=== PATIENT | female | born 1970 | race Caucasian/White ===

== ENCOUNTER 2017-02-13 23:19 | Inpatient (IN) | payer SELFPAY ==
[~2017-02-13] VITALS: Ht 170.2 cm; Wt 90.3 kg
[2017-02-13 23:21] VITALS: BP 126/70
[2017-02-14 00:07] VITALS: BP 119/74
[2017-02-14 00:09] LABS: ALBUMIN 3.8 gm/dl (3.1-4.5); ALKALINE PHOSPHATASE 88 U/L (45-117); BUN 17 mg/dl (7-24); CHLORIDE 108 mmol/L (98-107); CREATININE 0.76 mg/dL (0.55-1.02); LIPASE 106 U/L (73-393); POTASSIUM 4.1 mmol/L (3.5-5.1); SGOT/AST 23 IU/L (3-35); SGPT/ALT 37 U/L (12-78); SODIUM 141 mmol/L (136-145); TOTAL PROTEIN 7.5 gm/dL (6.4-8.2)
[2017-02-14 00:33] LABS: BASO % 0.2 % (0.0-1.0); EOS % 0.1 % (1.0-4.0); HEMATOCRIT 37.8 % (37.0-47.0); HEMOGLOBIN 13.3 g/dl (12.0-16.0); LYMPH # 1.1 10*3/uL (1.3-4.4); LYMPH % 8.8 % (27.0-41.0); MEAN CELL VOLUME 87.7 fl (81.0-99.0); MEAN CORPUSCULAR HGB 30.9 pg (27.0-31.0); MEAN CORPUSCULAR HGB CONC 35.2 g/dl (33.0-37.0); MEAN PLATELET VOLUME 12.1 fl (9.6-12.3); MONO # 0.3 10*3/uL (0.1-1.0); MONO % 2.7 % (3.0-9.0); NEUT # 11.1 10*3/uL (2.3-7.9); NEUT % 87.8 % (47.0-73.0); PLATELET COUNT AUTOMATED 201 10*3/uL (130-400); RED BLOOD COUNT 4.31 10*6/uL (4.10-5.10); RED CELL DISTRI WIDTH 12.6 % (0-14.5); WHITE BLOOD COUNT 12.6 10*3/uL (4.8-10.8)
--- NOTE | 2017-02-14 01:26 | NUR ---
PT HAS BEEN MEDICATED WITH MECLAZINE AND 2 ANTI NAUSEA MEDICATIONS. PT CONTINUES TO NOT BE ABLE TO TOLERATED EKG NOR CT SCAN. DR GUSTAFSON NOTIFIED AND PT TO BE ADMITTED MS AT THIS TIME AND ORDERS TO BE CANCELED
[2017-02-14 01:34] VITALS: BP 111/58
--- NOTE | 2017-02-14 01:34 | NUR ---
Time: 133 A 46 year old F admitted to 5E under services of ANTOINETTE SOLIS DO. Pt. arrived via stretcher from ER. Chief complaint: DIZZINESS. TOM HUNG
--- NOTE | 2017-02-14 02:43 | NUR ---
PT. EDUCATION PROVIDED FOR CT OF ABDOMEN AND PELVIS, PT. IS REFUSING TO HAVE THIS TEST DONE STATING " I AM NOT NAUSEATED IN THIS SITTING POSITION BUT WHEN I MOVE MY HEAD AND OPEN MY EYES IT COMES IN WAVES LIKE WINDSHEILF WIPERS." DR. MAE CONTACTED TO SEE IF CT COULD BE RETIMED FOR IN AM.
--- NOTE | 2017-02-14 02:46 | NUR ---
PT. IS ADAMENTLY REFUSING CT SCAN AT THIS TIME. MAX REED IN RADIOLOGY.
--- NOTE | 2017-02-14 03:24 | NUR ---
DR. MAE CONTACTED IN REGARDS MERROPENEM ORDER AND PT. ALLERGY TO PENICILLIN, DR. MAE INFORMED NURSE TO GO AHEAD AND GIVE MEDICATION.
[2017-02-14 06:35] LABS: BASO % 0.1 % (0.0-1.0); HEMATOCRIT 33.3 % (37.0-47.0); HEMOGLOBIN 11.5 g/dl (12.0-16.0); LYMPH # 0.8 10*3/uL (1.3-4.4); LYMPH % 9.6 % (27.0-41.0); MEAN CELL VOLUME 90.2 fl (81.0-99.0); MEAN CORPUSCULAR HGB 31.2 pg (27.0-31.0); MEAN CORPUSCULAR HGB CONC 34.5 g/dl (33.0-37.0); MEAN PLATELET VOLUME 12.3 fl (9.6-12.3); MONO # 0.2 10*3/uL (0.1-1.0); NEUT # 6.9 10*3/uL (2.3-7.9); NEUT % 86.8 % (47.0-73.0); PLATELET COUNT AUTOMATED 177 10*3/uL (130-400); RED BLOOD COUNT 3.69 10*6/uL (4.10-5.10)
[2017-02-14 06:51] LABS: ALBUMIN 3.1 gm/dl (3.1-4.5); ALKALINE PHOSPHATASE 70 U/L (45-117); BUN 14 mg/dl (7-24); CHLORIDE 110 mmol/L (98-107); CHOLESTEROL 162 mg/dL (<200); CREATININE 0.54 mg/dL (0.55-1.02); HDL CHOLESTEROL 51 mg/dl (40-60); LDL CHOLESTEROL 97 mg/dL (9-159); PHOSPHOROUS 3.2 mg/dL (2.5-4.9); POTASSIUM 3.9 mmol/L (3.5-5.1); SGOT/AST 15 IU/L (3-35); SGPT/ALT 30 U/L (12-78); SODIUM 141 mmol/L (136-145); TOTAL PROTEIN 6.2 gm/dL (6.4-8.2); TRIGLYCERIDES 72 mg/dl (<150); VLDL CHOLESTEROL 14 mg/dL (6-40)
[2017-02-14 06:57] LABS: FREE T4 1.01 ng/dl (0.76-1.46); THYROID STIM HORMONE (HS) 0.526 uIU/ml (0.358-4.75)
[2017-02-14 08:00] VITALS: BP 118/60
--- NOTE | 2017-02-14 08:24 | NUR ---
DR. GOODSON IN ROOM. NOTIFIED ABOUT PT ALLERGY TO PCN AND REACTION OF SEIZURES. PT IS CONCERN OVER TAKING MERREM. STATE HE WOULD LOOK AT ORDERS. PT GIVEN CT PREP AT THIS TIME. DENIES NAUSEA.
[2017-02-14 08:35] LABS: VITAMIN D, 25-HYDROXY 24.1 ng/mL (30-100)
--- NOTE | 2017-02-14 09:15 | NUR ---
Pt vomited after drinking first bottle of CT prep. States she did not feel nauseated and still does not. States she just had a feeling of fullness. Notified CT scan departement. They stated to call when pt was finished with the second bottle.
--- NOTE | 2017-02-14 09:35 | NUR ---
Pt finished second bottle of CT prep and I called CAT scan dept.
[2017-02-14 12:00] VITALS: BP 110/67
--- NOTE | 2017-02-14 15:03 | NUR ---
PT GIVEN TYLENOL PER PT REQUEST FOR HEADACHE PAIN RATED 5/10 THAT RADIATES THROUGHOUT BACK OF HEAD. WILL CONTINUE TO MONITOR AND REASSESS.
--- NOTE | 2017-02-14 16:00 | NUR ---
Pt states that tylenol effective for headache.
[2017-02-14 17:05] VITALS: BP 109/70
--- NOTE | 2017-02-14 19:10 | NUR ---
TOOK OVER CARE OF PT AT THIS TIME, PT ALERT ORIENTED AND PLEASANT. NO S/S DISTRESS OR PAIN AT THIS TIME. IV SITE PATENT, DRESSING DRY AND IN TACT. IV FLUIDS RUNNING PER ORDER. FAMILY AT BEDSIDE. ASSESSMENT COMPLETE, LUNGS CLEAR, BOWEL SOUNDS NORMOACITVE, HEART RATE TACHYCARDIC AT 110 PER CM. ENCOURAGED USE OF CALL LIGHT FOR NEEDS/CONCERNS.
--- NOTE | 2017-02-14 19:41 | NUR ---
During bedside report pt questioned why pt did not receive a second dose of solumedrol. States that the Dr. in Er told him that they probably would give pt another dose of solumedrol. States he wants the Dr called and to see if this can be given. Pt denies any further nausea but states she is still having some dizziness when she moved. Notified Dr. Araya resident public relations consultant of this. States he will review the pt information and see about this. I notified the nurse taking over for me of this so she could communicate it with the pt and .
--- NOTE | 2017-02-14 20:10 | NUR ---
DR. MAE NOTIFIED THAT PT AND FAMILY ARE REQUESTING A DOSE OF SOLUMEDROL. NEW ORDERS RECEIVED.
[2017-02-14 20:45] VITALS: BP 97/50
--- NOTE | 2017-02-14 20:50 | NUR ---
PT REQUEST TYLENOL FOR HEADACHE, TYLENOL ADMINISTERED. WILL MONITOR FOR EFFECTIVENESS.
--- NOTE | 2017-02-14 21:50 | NUR ---
TYLENOL EFFECTIVE PER PT.
[2017-02-15] VITALS: BP 131/69
--- NOTE | 2017-02-15 01:55 | NUR ---
PT RESTING COMFORTABLY AT THIS TIME WITH NO COMPLAINTS. RESPIRATIONS EASY. IV FLUIDS INFUSING PER ORDER. ENCOURAGED TO USE CALL LIGHT, PT VOICED UNDERSTANDING.
[2017-02-15 06:10] LABS: BASO % 0.1 % (0.0-1.0); HEMATOCRIT 37.2 % (37.0-47.0); HEMOGLOBIN 12.3 g/dl (12.0-16.0); LYMPH # 0.8 10*3/uL (1.3-4.4); LYMPH % 10.2 % (27.0-41.0); MEAN CORPUSCULAR HGB 30.1 pg (27.0-31.0); MEAN CORPUSCULAR HGB CONC 33.1 g/dl (33.0-37.0); MONO # 0.1 10*3/uL (0.1-1.0); NEUT # 6.9 10*3/uL (2.3-7.9); NEUT % 88.1 % (47.0-73.0); PLATELET COUNT AUTOMATED 182 10*3/uL (130-400); RED BLOOD COUNT 4.09 10*6/uL (4.10-5.10); RED CELL DISTRI WIDTH 13.2 % (0-14.5); WHITE BLOOD COUNT 7.9 10*3/uL (4.8-10.8)
[2017-02-15 06:34] LABS: BUN 9 mg/dl (7-24); CHLORIDE 109 mmol/L (98-107); CREATININE 0.71 mg/dL (0.55-1.02); SODIUM 144 mmol/L (136-145)
--- NOTE | 2017-02-15 06:53 | NUR ---
PT GIVEN ANTIVERT FOR DISSINESS PER REQUEST AND TYLENOL FOR HEADACHE. WILL MONITOR. CALL LIGHT IN REACH.
--- NOTE | 2017-02-15 07:45 | NUR ---
IN TO SEE PT, TOOK OVER CARE AT THIS TIME. PT ALERT ORIENTED AND PLEASANT. NO S/S OF PAIN OR DISTRESS. RESPIRATIONS EASY AND UNLABORED. HRR, 92 ON CM, LUNGS CLEAR THROUGHOUT. NORMOACTIVE BOWEL SOUNDS. IV SITE PATENT, DRESSING DRY AND IN TACT. FLUIDS RUNNING PER ORDER. NO COMPLAINTS VOICED. ENCOURAGED USE OF CALL LIGHT FOR NEEDS/CONCERNS.
[2017-02-15 08:00] VITALS: BP 121/76
--- NOTE | 2017-02-15 09:30 | NUR ---
Optical Store Manager in to talk to patient. Patient states lives at home with her . There are 12 steps in the home. Physician: no family physician [facility]acy: [facility] Home health services: none Patient's level of ADLs: INDEPENDENT Patient has working utilities: yes DME: none Follow-up physician's appointment after d/c: will be made by the hospitalist nurse director upon discharge Does patient want to access PORTAL?: no Discharge plan discussed with patient. She lives at home with her . She in independent in her ADLs and ambulation. Denies any home needs at this time. When medically stable she will be discharged to home. DOUG ABDULLAHI
--- NOTE | 2017-02-15 10:00 | NUR ---
AM MEDICATIONS TAKEN WITH EASE. NO S/S OF DISTRESS. RESPIRATIONS EASY AND UNLABORED.
[2017-02-15] MEDS ORDERED: VITAMIN D-32000 UNIT PO (10:24)
[2017-02-15] MEDS ORDERED: MECLIZINE HCL25 M2 PO (10:24)
--- NOTE | 2017-02-15 11:50 | NUR ---
Discharge instructions reviewed with patient/family. Patient receptive and verbalizes understanding. Follow-up care arranged. Written instructions given to patient/family. ALBERTO SOLOMON
== END 2017-02-15 14:24 | disposition home or self-care (01) | DRG 392 ==
LOC: ED 23:19 → EDHOLD 02-14 00:50 → 5E 02-14 00:50
PROVIDERS: Hospitalist; Internal Medicine; Student in an Organized Health Care Education/Training Program; ADMIT Internal Medicine
DX: R11.2 Nausea with vomiting, unspecified (principal); E87.8 Other disorders of electrolyte and fluid balance, not elsewhere classified; D72.829 Elevated white blood cell count, unspecified; R73.9 Hyperglycemia, unspecified; R42 Dizziness and giddiness; Z88.0 Allergy status to penicillin

== ENCOUNTER → 2017-03-18 | Outpatient (CLI) | payer SELFPAY ==
[~2017-03-18] MED LIST: MECLIZINE HCL25 M2 PO; VITAMIN D-32000 UNIT PO
== END | disposition home or self-care (01) ==
LOC: US 09:48 → MRI 11:00
DX: E01.0 Iodine-deficiency related diffuse (endemic) goiter (principal); G44.89 Other headache syndrome

== ENCOUNTER → 2019-09-17 | Outpatient (CLI) | payer BC | END | disposition home or self-care (01) | LOC: MAMMO 08:18 → MRI 09:00 | DX: Z12.31 Encounter for screening mammogram for malignant neoplasm of breast (principal); J32.2 Chronic ethmoidal sinusitis; J33.0 Polyp of nasal cavity; G35 Multiple sclerosis; R90.82 White matter disease, unspecified ==

== ENCOUNTER → 2019-09-19 | Outpatient (CLI) | payer BC | END | disposition home or self-care (01) | LOC: CARD 00:13 | DX: R06.02 Shortness of breath (principal) ==

== ENCOUNTER → 2021-07-27 | Outpatient (CLI) | payer BC ==
[~2021-07-27] MED LIST changes: +ADDERALL XR25 MG PO; +DILTIAZEM HCL120 M1 PO; +LEXAPRO10 MG PO
== END | disposition home or self-care (01) ==
LOC: CARD 07:24
PROVIDERS: ATTEND Internal Medicine
DX: I49.8 Other specified cardiac arrhythmias (principal); R09.02 Hypoxemia; R07.9 Chest pain, unspecified

== ENCOUNTER → 2021-08-10 | Outpatient (CLI) | payer BC | END | disposition home or self-care (01) | LOC: CT 08:55 | PROVIDERS: ATTEND Internal Medicine | DX: I49.8 Other specified cardiac arrhythmias (principal); R09.02 Hypoxemia; R07.89 Other chest pain ==